=== PATIENT | male | born 1945 | race Caucasian/White ===

== ENCOUNTER → 2021-05-26 | Outpatient (CLI) | payer OTHER ==
[~2021-05-26] MED LIST: BISOPROLOL FUMA10 MG PO; CARDURA4 MG PO; ECOTRIN81 MG PO; NEURONTIN 400400 MG PO; NORVASC10 MG PO; PERCOCET 10-321 EACH PO; PRILOSEC20 MG PO; XARELTO 15 MG T15 MG PO; ZOCOR40 MG PO
== END ==
LOC: KOH-I 11:13
DX: S82.492A Other fracture of shaft of left fibula, initial encounter for closed fracture (principal); S92.912A Unspecified fracture of left toe(s), initial encounter for closed fracture
CPT/HCPCS: 73610; 73630

== ENCOUNTER → 2021-06-16 | Outpatient (CLI) | payer OTHER | LOC: KOH-I 08:58 | DX: S92.312D Displaced fracture of first metatarsal bone, left foot, subsequent encounter for fracture with routine healing (principal); S82.892D Other fracture of left lower leg, subsequent encounter for closed fracture with routine healing | CPT/HCPCS: 73610; 73630 ==

== ENCOUNTER → 2021-07-16 | Outpatient (CLI) | payer OTHER | LOC: KOH-I 09:56 | DX: S82.832G Other fracture of upper and lower end of left fibula, subsequent encounter for closed fracture with delayed healing (principal) | CPT/HCPCS: 73610; 73630 ==

== ENCOUNTER → 2021-07-30 | Outpatient (CLI) | payer OTHER | LOC: KOH-I 10:42 | DX: S82.832G Other fracture of upper and lower end of left fibula, subsequent encounter for closed fracture with delayed healing (principal) | CPT/HCPCS: 73610 ==

== ENCOUNTER → 2021-10-01 | Outpatient (CLI) | payer OTHER | LOC: KOH-I 14:30 | DX: S82.832K Other fracture of upper and lower end of left fibula, subsequent encounter for closed fracture with nonunion (principal) | CPT/HCPCS: 73610 ==